=== PATIENT | female | born 1985 | race Caucasian/White ===

== ENCOUNTER 2018-06-22 23:34 | Emergency (ER) | payer MEDICAID, SELFPAY ==
[2018-06-22 23:35] VITALS: BP 117/80; PULSE 57; RESP 14; TEMP 36.6; O2SAT 99; BMI 31.4
--- NOTE | 2018-06-23 00:51 | CT_ITS ---
STUDY: CT ABDOMEN AND PELVIS WITHOUT CONTRAST REASON FOR EXAM: Female, 32 years old. Left flank pain. RADIATION DOSAGE (If Supplied By Facility): CTDIvol = ( 9.90 ) mGy, DLP = ( 524.41 ) mGycm TECHNIQUE: Transaxial images were obtained from the dome of the diaphragm to the symphysis pubis without oral contrast, and without intravenous contrast. Sagittal and coronal images were reconstructed. Individualized dose optimization techniques were used for this CT. COMPARISON: February 09, 2015. FINDINGS: The visualized lung bases are unremarkable. The visualized portions of the heart are within normal limits. Normal liver. Normal gallbladder and extrahepatic biliary system. Normal spleen. Normal pancreas. Normal bilateral adrenal glands. Normal right kidney. Normal left kidney. Normal visualized stomach. Normal small intestine. Normal colon. The appendix is well visualized and appears normal. Normal abdominal aorta. Normal inferior vena cava. Normal retroperitoneum. No intra-abdominal free air Normal urinary bladder. Uterus is retroverted. An IUD is located within the fundal portion of the endometrium. No adnexal masses seen. Normal abdominal wall. Normal osseous structures. CT/Abdomen/Pelvis without Cont IMPRESSION: No acute findings in the abdomen or pelvis. No hydronephrosis or urinary tract stones. No evidence of bowel obstruction. Normal appendix. Electronically Signed: iKrk Estevez MD at 2:18 EDT , Service support ,
[2018-06-23 00:59] LABS: Bacteria 0 SEEN /hpf (None Seen); Mucous, Urine 0 SEEN /hpf (<or=2+); Red Blood Cells-Urine 0 SEEN /hpf (0-5)
[2018-06-23] MEDS: Ondansetron 4 MG/2 ML Vial IV (01:02)
[2018-06-23] MEDS: Ketorolac 30 MG/ML Syringe IV (01:02)
[2018-06-23] MEDS: 0.9% Normal Saline 1,000 ML 250 ML IV (01:02)
[2018-06-23 01:03] LABS: Color, Urine Yellow (Yellow); Glucose, Dipstick Normal (Normal); Ketone-Dipstick Negative (Negative); Leukocyte Esterase-Dipstick Negative /ul (Negative); Nitrite-Dipstick Negative (Negative); Occult Blood-Urine 250 /ul (Negative); Protein-Dipstick 30 mg/dl (Negative); Specific Gravity, Urine 1.005 (1.002-1.030); Urine Bilirubin Dipstick Negative (Negative); Urine Clarity Sl. Cloudy (Clear); Urine Urobilinogen Normal (Normal)
[2018-06-23] MEDS: Morphine 4 MG/ML Syringe IV (01:03)
[2018-06-23 01:09] VITALS: RESP 18; O2SAT 99
[2018-06-23 01:11] LABS: Squamous Epithelial Cells - UA 0-5 SEEN /hpf (5-10); White Blood Cells 0-5 SEEN /hpf (0-5)
[2018-06-23 01:16] LABS: Absolute Lymphocyte Count 2.28 X10^3/ul (0.83-4.51); Absolute Neutrophil Count 5.8 X10^3/uL (2.0-7.7); Basophil# 0.02 X10^3/uL; Basophil% 0.2 % (0-1); Eosinophil# 0.15 X10^3/uL; Eosinophils% 1.7 % (0-5); Hematocrit 42.7 % (37-47); Hemoglobin 14.4 g/dl (12.0-15.0); Lymphocyte # 2.28 X10^3/ul (4.0); Lymphocyte % 25.2 % (19-41); Mean Corp Hgb Conc 33.7 g/gl (32-36); Mean Corpuscular Hgb 30.1 pg (27.0-32.0); Mean Corpuscular Volume 89.1 fL (81-99); Monocyte# 0.75 X10^3/uL; Monocyte% 8.3 % (0-10); Neutrophil # 5.81 X10^3/uL (2.7-7.7); Neutrophil % 64.4 % (47-70); Platelet Count 192 K/mm3 (150-450); RBC Distribution Width CV 12.4 % (11.6-14.6); RBC Distribution Width SD 39.3 fl (35.1-43.9); Red Blood Count 4.79 M/mm3 (4.2-5.4)
[2018-06-23 01:18] LABS: POSITIVE COUNT NO; POSITIVE DIFFERENTIAL NO; POSITIVE MORPHOLOGY NO
[2018-06-23 01:29] LABS: Anion Gap 7 (5-15); BUN 17 mg/dL (7-18); BUN/Creat Ratio 17.8 RATIO (10-20); Calcium,Total 9.1 mg/dL (8.5-10.1); Chloride 108 mmol/L (98-107); Creatinine, Serum 0.96 mg/dL (0.55-1.02); EST Glomerular Filtration Rate 72 mL/min (>60); Est Glom Filt Rate - Afr Amer 88 mL/min (>60); Estimated Creatinine Clearance 77.11 ml/min; Glucose 84 mg/dL (74-106); Potassium 3.3 mmol/L (3.5-5.1); Sodium Level 140 mmol/L (136-145)
[2018-06-23 01:41] LABS: Pregnancy, Serum, hCG Quali. NEGATIVE Negative (0-9 Nonpreg)
--- NOTE | 2018-06-23 02:33 | ED.VISSUMM ---
- ER Visit Summary Date of Service: 06/23/18 Chief Complaint: [] Left back and flank pain History of Present Illness: The patient is a 32 F with left back and flank pain for last 3 hours. It waxes and wanes. She had one episode of emesis. No history of kidney stones. Denies . No urinary symptoms. Has had 5 alcohol beverages tonight. Physical Examination: Vital signs reviewed General: Well-nourished well-developed Head: Normocephalic atraumatic Eyes: Pupils equal round and reactive to light extraocular movements intact ENT: TMs clear no hemotympanum no trauma Neck: Nontender full range of motion Cardiovascular: Regular rate rhythm no murmurs normal S1-S2 Respiratory: No distress clear to auscultation bilaterally chest nontender Abdomen: Soft nontender nondistended normal bowel sounds no masses Back: Tender left CVA and left flank. Extremities: Nontender active range of motion ?4 extremities no trauma Skin: Normal color no trauma Neuro alert oriented cranial nerves II through XII intact normal strength sensation reflexes Test Results: [] Emergency Department Course and Treatment: [] Lab work is unremarkable except for potassium 3.3. No cells or bacteria in her urine. negative. CT flank showed nothing acute. Patient resting comfortably after IV fluids, Toradol, morphine, Zofran. At this time this is likely musculoskeletal. She will use anti-inflammatories and follow-up as an outpatient. Treatment Plan: [] Disposition: [] Impression: [] Left-sided back and flank pain This note was generated with [employer] dictation software. It may contain incorrect words, spelling, and punctuation that were not noted in review of the chart prior to signing ED Disposition - Plan for ED Patient: Chief Complaint: Complaint Referrals: Brielle Ball MD [Primary Care Provider] -
--- NOTE | 2018-06-23 02:34 | ED.DEP ---
ED Disposition - Plan for ED Patient: Disposition: Home or Assisted Living Chief Complaint: Complaint Instructions: ED Flank Pain Uncertain Cause Referrals: Brielle Ball MD [Primary Care Provider] -
[2018-06-23 02:53] VITALS: BP 112/71; PULSE 59; RESP 17; O2SAT 99
== END 2018-06-23 02:55 | disposition home or self-care (01) ==
PROVIDERS: Emergency Provider Emergency Medicine; Family Provider Internal Medicine; PCP Internal Medicine
DX: M54.9 Dorsalgia, unspecified (principal); R10.9 Unspecified abdominal pain; R11.10 Vomiting, unspecified; F32.9 Major depressive disorder, single episode, unspecified; Z72.0 Tobacco use; Z79.899 Other long term (current) drug therapy
CPT/HCPCS: 74176; 80048; 81001; 84703; 85025; 96361; 96374; 96375; 99283; J7030; A4216; J2405

== ENCOUNTER 2024-01-26 13:07 | Emergency (ER) | payer SELFPAY ==
[2024-01-26 13:07] VITALS: BP 124/81; PULSE 96; RESP 18; TEMP 36.1; O2SAT 99; BMI 33.1
--- NOTE | 2024-01-26 13:26 | EDS_ITS ---
HPI History of Present Illness Chief Complaint: Back Informant: patient Onset/Context/Timing Onset: Weeks (1) Context: Gradual Onset Timing: Continuous Quality: Sharp, Dull, Aching, Burning and Throbbing Location: Lumbar Worsened by: improves with Nothing Relieved by: Nothing Associated Symptoms Associated Symptoms: Abdominal Pain; Negative for Numbness, Tingling, Radiation to Right Leg, Radiation to Left Leg, Fever, Dysuria, Unable to Ambulate, Unable to Transfer, Urinary Retention, Urinary Incontinence, Constipation or Fecal Incontinence Narrative Narrative: Patient presents with back pain that has been getting worse over the past week. Patient states it came on gradually. Patient states the pain has been constant. Patient states the pain is mainly over the left lower lumbar area. Patient states it radiates around into her suprapubic area. Patient states nothing makes it better nothing makes it worse. Patient denies any dysuria or hematuria. Patient admits to some irregular vaginal bleeding but denies any heavy vaginal bleeding. Patient denies any fevers or chills. Patient denies any bowel or bladder changes. Patient denies any saddle anesthesia. Patient denies any trauma or injury. PFSH PFSH Medical History no medical history no medical history Home Medications Paroxetine 20 mg PO DAILY 12/17/17 [History Last Taken Unknown] Allergy/AdvReac Type Severity Reaction Status Date / Time No Known Allergies Allergy Verified 01/26/24 13:09 Surgical History no surgical history no surgical history Social History Smoking Status: Current some day smoker tobacco type: cigarettes ROS ROS ED Constitutional Constitutional ED: Denies chills or fever(s) Eyes Eyes: Denies blurry vision or change in vision ENT ENT ED: Denies rhinorrhea or sore throat Cardiovascular Cardiovascular: Denies chest pain or palpitations Respiratory/Chest Respiratory/Chest: Denies cough or dyspnea Gastrointestinal Gastrointestinal: Denies nausea or vomiting Genitourinary Genitourinary ED: Denies dysuria or hematuria Musculoskeletal Musculoskeletal: Reports back pain; Denies neck pain Integumentary Denies abscess or rash Neurologic Neurologic: Denies headache(s) or weakness Allergic/Immunologic Allergic/Immunologic ED: Denies mouth swelling or urticaria EXAM Physical Exam Const Vital Signs: 01/26/24 13:07 Temperature 96.9 F L Temperature Source Temporal Pulse Rate 96 Respiratory Rate 18 Blood Pressure 124/81 H Blood Pressure Mean 95 Pulse Ox 99 Oxygen Delivery Method Room Air Positive well nourished and well developed General Appearance ED: well developed and NAD HEENT Reports moist mucous membranes Neck supple and no JVD Resp normal respiratory effort and clear to auscultation bilaterally Cardio regular rate and regular rhythm GI soft to palpation and non-distended Palpation: tender suprapubic (Mild); Negative for guarding or rebound tenderness present Back/Spine Back/Spine Narrative: There is tenderness and mild spasm of the left lumbar paraspinal muscles. There is mild left CVA tenderness. There is decreased range of motion of the lumbar spine secondary to pain. Strength is 5/5 bilaterally in the lower extremities. There are no sensory deficits noted. Lumbar Spine / Lower Back: ROM limited Neuro oriented x3 and no sensory deficits noted Sensorium / Orientation: alert Motor Exam: strength 5/5 throughout Psych mental status grossly normal Skin no rashes or lesions noted MDM MDM MDM Narrative Medical decision making narrative: Differential diagnosis includes lumbosacral strain, ureteral calculus, urinary tract infection, pyelonephritis, and diverticulitis. CBC will be obtained to assess for leukocytosis and anemia. Basic metabolic profile will be obtained to assess for electrolyte abnormality and renal function. Serum hCG will be obtained to assess for . Urinalysis will be obtained to assess for urinary tract infection and hematuria. CT scan of the abdomen and pelvis will be obtained to assess for ureteral calculus and diverticulitis. Lab Data Attestation: I reviewed the patient's lab results. Lab results narrative: CBC was reviewed and was within normal limits. Basic metabolic profile was reviewed and was within normal limits. Serum hCG was reviewed and was negative. Urinalysis was reviewed. There is no evidence of urinary tract infection or hematuria. Labs: Laboratory Results - last 24 hr 01/26/24 01/26/24 14:11 14:20 WBC 6.2 RBC 4.90 Hgb 14.7 Hct 43.9 MCV 89.6 MCH 30.0 MCHC 33.5 RDW Std Deviation 38.3 RDW Coeff of [place] 11.7 Plt Count 248 MPV 10.3 Immature Gran % (Auto) 0.300 Neut % (Auto) 57.8 Lymph % (Auto) 33.0 [place] % (Auto) 6.7 Eos % (Auto) 1.6 Baso % (Auto) 0.6 Absolute Neuts (auto) 3.6 Absolute Lymphs (auto) 2.03 Nucleated RBC % 0 Sodium 140 Potassium 3.9 Chloride 110 H Carbon Dioxide 26.0 Anion Gap 4 L BUN 20 H Creatinine 0.98 Estim Creat Clear Calc 88.13 Est GFR (MDRD) Af Amer 83 Est GFR (MDRD) Non-Af 69 BUN/Creatinine Ratio 20.5 H Glucose 102 Calcium 9.6 Serum , Qual NEGATIVE Urine Color Yellow Urine Clarity Sl. Cloudy Urine pH 6.0 Ur Specific [place] 1.020 Urine Protein 15 H Urine Glucose (UA) Normal Urine Ketones Negative Urine Occult Blood 50 H Urine Nitrite Negative Urine Bilirubin Negative Urine Urobilinogen Normal Ur Leukocyte Esterase 25 H Urine RBC 0-5 SEEN Urine WBC 0-5 SEEN Ur Squamous Epith Cells 0-5 SEEN Urine Bacteria 1+ Urine Mucus 0 SEEN Radiography Diagnostic Testing: Clinical Impression(s) from Imaging Studies Abdomen/Pelvis CT 01/26/24 14:52 IMPRESSION: 1. Small fat-containing umbilical hernia. 2. No radiopaque stones or hydronephrosis or cysts or masses are present. No free air or free fluid or bowel dilatation is seen. No colonic diverticula. Electronically Signed: Bud Reyes MD at 15:28 EST Reading Location ID and State: [facility] / [place] , Service support , CT scan of the abdomen and pelvis was obtained. There is a small fat-containing umbilical hernia. There is no hydronephrosis or radiopaque stones. There is no free air or free fluid. There is no evidence of bowel obstruction or perforation. IUD is present in the uterus. This was interpreted by the radiologist was also independently reviewed by myself. Treatment and Re-Evaluation Narrative: Patient was given IV fluids and Toradol. Patient was feeling better on ree valuation. Patient was advised of her findings. Patient was advised that this is most likely musculoskeletal. Patient was instructed use ice to the area. Patient was instructed to follow-up with her primary care physician in 5 to 7 days. Patient understood and was agreeable with the plan. All questions were answered. Discharge Plan Triage Chief Complaint: Back Other Complaint: Lower Extremity Injury ED Provider: Kamlesh Horner Dx/Rx/DC Orders Clinical Impression: Acute lumbosacral myofascial strain, Left flank pain Instructions: ED Back Sprain/Strain Prescriptions: No Action Paroxetine 20 mg PO DAILY Primary Care Provider: Vinita Ortiz NP Referrals: Brielle Ball MD [Med Staff - Web Press Operator] - 5-7 Days Disposition Disposition: Home, Self Care
[2024-01-26] MEDS: 0.9% Normal Saline (1000mL) 1,000 ML 1000 ML IV (14:12)
[2024-01-26] MEDS: Ketorolac 30 MG/ML Syringe IV (14:12)
[2024-01-26 14:28] LABS: Mucous, Urine 0 SEEN /hpf (<or=2+)
[2024-01-26 14:31] LABS: Color, Urine Yellow (Yellow); Glucose, Dipstick Normal (Normal); Ketone-Dipstick Negative (Negative); Leukocyte Esterase-Dipstick 25 /ul (Negative); Nitrite-Dipstick Negative (Negative); Occult Blood-Urine 50 /ul (Negative); Protein-Dipstick 15 mg/dl (Negative); Urine Bilirubin Dipstick Negative (Negative); Urine Clarity Sl. Cloudy (Clear); Urine Urobilinogen Normal (Normal)
[2024-01-26 14:33] LABS: Absolute Lymphocyte Count 2.03 X10^3/uL (0.83-4.51); Absolute Neutrophil Count 3.6 X10^3/uL (2.0-7.7); Basophil# 0.04 X10^3/uL; Basophil% 0.6 % (0-1); Eosinophils% 1.6 % (0-5); Hematocrit 43.9 % (37-47); Hemoglobin 14.7 g/dL (12.0-15.0); Lymphocyte # 2.03 X10^3/ul (0.83-4.51); Mean Corp Hgb Conc 33.5 g/dL (32-36); Mean Corpuscular Volume 89.6 fL (81-99); Mean Platelet Vol. 10.3 fl (6.2-12.0); Monocyte# 0.41 X10^3/uL; Monocyte% 6.7 % (0-10); NRBC Flagged by Analyzer 0 % (0-5); Neutrophil # 3.56 X10^3/uL (2.7-7.7); Neutrophil % 57.8 % (47-70); Platelet Count 248 K/mm3 (150-450); RBC Distribution Width CV 11.7 % (11.6-14.6); RBC Distribution Width SD 38.3 fl (35.1-43.9); White Blood Count 6.2 K/mm3 (4.4-11.0)
[2024-01-26 14:44] LABS: Bacteria 1+ /hpf (None Seen); Red Blood Cells-Urine 0-5 SEEN /hpf (0-5); Squamous Epithelial Cells - UA 0-5 SEEN /hpf (5-10); White Blood Cells 0-5 SEEN /hpf (0-5)
[2024-01-26 14:46] LABS: Internal QC Validated? YES +Cl - CLEAR BKGD; Pregnancy, Serum, hCG Quali. NEGATIVE Negative; Record Kit Lot#, Serum Preg. HCG0000718086
[2024-01-26 14:50] LABS: Anion Gap 4 (5-15); BUN 20 mg/dL (7-18); BUN/Creat Ratio 20.5 RATIO (10-20); Calcium,Total 9.6 mg/dL (8.5-10.1); Chloride 110 mmol/L (98-107); Creatinine, Serum 0.98 mg/dL (0.55-1.02); EST Glomerular Filtration Rate 69 mL/min (>60); Est Glom Filt Rate - Afr Amer 83 mL/min (>60); Estimated Creatinine Clearance 88.13 ml/min; Glucose 102 mg/dL (74-106); Potassium 3.9 mmol/L (3.5-5.1); Sodium Level 140 mmol/L (136-145)
--- NOTE | 2024-01-26 14:52 | CT_ITS ---
STUDY: CT ABDOMEN AND PELVIS WITHOUT CONTRAST REASON FOR EXAM: Female, 38 years old. Left flank pain RADIATION DOSAGE (If Supplied By Facility): CTDIvol = ( 13.37 ) mGy, DLP = ( 748.06 ) mGycm TECHNIQUE: Transaxial images were obtained from the dome of the diaphragm to the symphysis pubis without oral contrast, and without intravenous contrast. Sagittal and coronal images were reconstructed. Individualized dose optimization techniques were used for this CT. COMPARISON: CT of abdomen and pelvis dated June 23, 2018 FINDINGS: The visualized lung bases are unremarkable. The visualized portions of the heart are within normal limits. Normal liver. Normal gallbladder and extrahepatic biliary system. Normal spleen. Normal pancreas. Normal bilateral adrenal glands. Normal right kidney. Normal left kidney. No radiopaque stones or hydronephrosis or cysts or masses are present. No free air or free fluid or bowel dilatation is seen. No colonic diverticula. Normal visualized stomach. Normal small intestine. Normal colon. The appendix is visualized and appears normal. Normal abdominal aorta. Normal inferior vena cava. Normal retroperitoneum. Normal urinary bladder. Normal visualized uterus. An IUD is present. Normal ovaries. There is a small umbilical hernia containing fat. Normal osseous structures. CT/Abdomen/Pelvis without Cont IMPRESSION: 1. Small fat-containing umbilical hernia. 2. No radiopaque stones or hydronephrosis or cysts or masses are present. No free air or free fluid or bowel dilatation is seen. No colonic diverticula. Electronically Signed: Bud Reyes MD at 15:28 EST ,
[2024-01-26 15:07] VITALS: RESP 16
[2024-01-26 15:40] VITALS: BP 121/98; PULSE 76; RESP 16; TEMP 36.8; O2SAT 98
--- OUTSIDE RECORDS SUMMARY | 2024-01-26 22:20 | XMS RPT_ITS | CCD ---
Author Name Unknown Address [address] [place] [address] Organization [facility] Care Team Providers Care Records Associate Name Role Phone YARIEL RAMOS Attending Unavailable PHYSICIAN, NONE Primary Care Unavailable Angel CHECK WEIGHER.Vinita PUENTE Primary Care Provider VINITA ORTIZ Primary Care Unavailable VINITA ORTIZ Attending Unavailable VINITA ORTIZ Referring Unavailable VINITA ORTIZ Primary Care Unavailable Medications Completed/Discontinued Medications Medication Drug Class(es) Dates Sig (Normalized) Sig (Original) amitriptyline hydrochloride 10 mg oral tablet (5 sources) Tricyclic Antidepressant Start: 02-20-2022 End: 09-15-2023 take 1 tablet by mouth once daily at bedtime amitriptyline (ELAVIL) 10 mg tablet Indications: Anxiety , Irritable bowel syndrome with diarrhea Take 1 tablet by mouth daily at bedtime. 90 tablet 3 09/15/2023 Active Problems Active Problems Problem Classification Problem Date Documented Da te Episodic/Chronic Adjustment disorders (4 sources) Adjustment disorder with depressed mood; Translations: [Adjustment disorder with depressed mood] Onset: 5 11-28-2005 Chronic Anxiety disorders (9 sources) Anxiety; Translations: [Anxiety disorder, unspecified] Onset: 5 Chronic Disorders usually diagnosed in infancy, childhood, or adolescence (4 sources) Attention deficit hyperactivity disorder, predominantly inattentive type; Translations: [Other specified behavioral and emotional disorders with onset usually occurring in childhood and adolescence] Onset: 5 08-11-2020 Chronic Esophageal disorders (6 sources) Gastroesophageal reflux disease without esophagitis; Translations: [Gastro-esophageal reflux disease without esophagitis] Onset: 0 08-11-2020 Chronic Miscellaneous mental health disorders (4 sources) Primary insomnia; Translations: [Primary insomnia] Onset: 0 08-11-2020 Chronic Other gastrointestinal disorders (1 source) Irritable bowel syndrome with diarrhea; Translations: [Irritable bowel syndrome with diarrhea] 09-15-2023 Chronic Other gastrointestinal disorders (1 source) Irritable bowel syndrome with diarrhea; Translations: [Irritable bowel syndrome with diarrhea] Onset: 3 Chronic Past or Other Problems Problem Classification Problem Date Documented Da te Episodic/Chronic Screening and history of mental health and substance abuse codes (4 sources) H/O: anxiety state; Translations: [Personal history of other mental and behavioral disorders] Onset: 07-03-2015 07-03-2015 Episodic Results Test Name Value Interpretation Reference Range Facil ity Vital Signs Date Time Vital Sign Value Performing Clinician Jay aguilar 09-15-2023 08:49-0400 Body weight 94.35 kg Vinita Ortiz APRN.CINDI Work Phone: [facility] 09-15-2023 08:49-0400 Diastolic blood pressure 76 mm[Hg] Vinita Ortiz CHECK WEIGHER.SOFT CRAB SHEDDER Work Phone: [facility] 09-15-2023 08:49-0400 Heart rate 76 /min Vinita Ortiz CHECK WEIGHER.SOFT CRAB SHEDDER Work Phone: [facility] 09-15-2023 08:49-0400 Respiratory rate 16 /min Vinita Ortiz CHECK WEIGHER.SOFT CRAB SHEDDER Work Phone: [facility] 09-15-2023 08:49-0400 Systolic blood pressure 110 mm[Hg] Vinita Ortiz CHECK WEIGHER.SOFT CRAB SHEDDER Work Phone: [facility] Encounters Encounter Date Encounter Type Care Provider Facility Start: 09-15-2023 End: 09-16-2023 ambulatory VINITA ORTIZ Facility:[facility] Start: 09-15-2023 End: 09-15-2023 Office outpatient visit 25 minutes Vinita Ortiz APRN.SOFT CRAB SHEDDER Work Phone: [facility] [place] Plan of Treatment Date Care Activity Detail Author Start: 11-09-2024 Urine microalbumin profile [facility] Start: 09-15-2024 Covid-19 Vaccine (#1) Covid-19 Vacci ne (#1) [facility] Immunizations Immunization Date Immunization Notes Care Provider [facility] 11-09-2014 tetanus toxoid, redu justin diphtheria toxoid, and acellular pertussis vaccine, adsorbed Vinita Haagen CHECK WEIGHER.[facility] Work Phone: [facility] 10-10-2009 novel [id number], all formulations Vinita Haagen CHECK WEIGHER.[facility] Work Phone: [facility] Work Phone: 07-21-2000 measles, mumps and rubella virus vaccine Vinita Haagen CHECK WEIGHER.[facility] Work Phone: [facility] Work Phone: 05-12-1993 diphtheria, tetanus toxoids and pertussis vaccine Vinita Haagen CHECK WEIGHER.[facility] Work Phone: [facility] Work Phone: 05-12-1993 trivalent poliovirus vaccine, live, oral Vinita Haagen CHECK WEIGHER.[facility] Work Phone: [facility] Work Phone: 01-01-1990 diphtheria, tetanus toxoids and pertussis vaccine Vinita Haagen CHECK WEIGHER.[facility] Work Phone: [facility] Work Phone: 01-01-1990 trivalent poliovirus vaccine, live, oral Vinita Haagen CHECK WEIGHER.[facility] Work Phone: [facility] Work Phone: 12-19-1988 measles, mumps and rubella virus vaccine Vinita Haagen CHECK WEIGHER.SOFT [employer] SHEDDER Work Phone: [facility] Work Phone: 03-28-1988 diphtheria, tetanus toxoids and pertussis vaccine Vinita Haagen CHECK WEIGHER.[facility] Work Phone: [facility] Work Phone: 02-15-1988 diphtheria, tetanus toxoids and pertussis vaccine Vinita Haagen CHECK WEIGHER.[facility] Work Phone: [facility] Work Phone: 02-15-1988 trivalent poliovirus vaccine, live, oral Vinita Ortiz CHECK WEIGHER.SOFT CRAB SHEDDER Work Phone: [facility] Work Phone: 1987 diphtheria, tetanus toxoids and pertussis vaccine Vinita Ortiz CHECK WEIGHER.SOFT CR[employer] SHEDDER Work Phone: [facility] Work Phone: Payers Date Payer Category Payer Self-pay 1985 Unknown [id number] Social History Date Type Detail Facility Start: 12-29-2008 End: 09-15-2023 Tobacco smoking status NHIS Ex-smoker [facility] Work Phone: End: 08-01-2008 History of tobacco use Current smoker [facility] Work Phone: End: 08-01-2008 History of tobacco use Cigarette Smoker [facility] Work Phone: Start: 12-29-2008 End: 09-15-2023 Tobacco use and exposure Smokeless tobacco non-user [facility] Work Phone: Start: 02-20-2022 End: 09-15-2023 Alcohol intake Current drinker of alcohol (finding) [facility] Start: 12-29-2008 Tobacco Comment SOCIALLY ONLY [facility] Start: 05-13-2019 Alcohol Comment couple of beer s on the weekend [facility] Start: 1985 Sex Assigned At Not on file [facility] Start: 02-20-2022 End: 07-11-2023 History of Social function [facility] Start: 02-20-2022 End: 07-11-2023 Tobacco use panel [facility] National Score (1-100), lower number is lower risk Not on file [facility] Clinical Notes 06-26-2009 to 09-15-2023 Patient InstructionsVinita Ortiz APRN.CINDI - 09/15/2023 9:05 AM EDTTelephone Encounter - Lazara Rowley Ma - 08/11/2023 2:26 PM EDTTelephone Encounter - Joanna Betancourt - 08/11/2023 9:57 AM EDT Note Date & Type Note Facility 09-15-2023 Note HNO ID: [id number] Author: Vinita Ortiz APRN.SOFT CRAB SHEDDER Service: ? Author Type: Nurse Practitioner Type: Progress Notes Filed: 09/15/2023 1:07 PM Note Text: This is a 37 year old female who presents today with: Patient presents with: Recheck: Medication follow up/refills HISTORY OF PRESENT ILLNESS: Tracie Pineda is a 37 year old female. Patient presents with: Recheck: Medication follow up/refills Pt presents today for medication refills. Denies problems/concerns. Anxiety: Mood has been good. Paxil is doing its job. Wouldn't change anything with it. Denies side effects. Insomnia: I've been sleeping a lot better . Denies side effects. REVIEW OF SYSTEMS GENERAL: No weight loss, malaise or fevers/chills HEENT: Negative for frequent or significant headaches, No changes in hearing or vision. NECK: Negative for lumps, goiter, pain and significant neck swelling RESPIRATORY: Negative for cough, hemoptysis, wheezing, dyspnea or shortness of breath CARDIOVASCULAR: Negative for chest pain, leg swelling, orthopnea, or palpitations GI: No nausea, vomiting, or diarrhea/constipation. No hematochezia/melena. No heartburn or reflux symptoms. : No history of dysuria, frequency or incontinence MUSCULOSKELETAL: Negative for joint pain or swelling. SKIN: Negative for lesions, rash, and itching ENDOCRINE: Negative for cold or heat intolerance, polyuria, polydipsia and goiter NEURO: No history of headaches, syncope, paralysis, seizures or tremors PAST MEDICAL HISTORY: PAST MEDICAL HISTORY Diagnosis Date Anxiety 07/03/2015 Attention deficit disorder without mention of hyperactivity Encounter for insertion or removal of intrauterine contraceptive device 03/06/2011 mirena GERD without esophagitis 08/11/2020 History of panic attacks 07/03/2015 Primary insomnia 08/11/2020 PAST SURGICAL HISTORY Procedure Laterality Date DELIVERY ONLY 2008 , low transverse DILATION AND CURETTAGE DXAND/THER NONOBSTETRIC 01/30/2011 Dilation AND curettage INSERTION OF IUD 03/06/2011 Mirena ALLERGIES Patient has no known allergies. MEDICATIONS Current Outpatient Medications Medication Sig amitriptyline (ELAVIL) 10 mg tablet Take 1 tablet by mouth daily at bedtime. PARoxetine (PAXIL) 30 mg tablet Take 1 tablet by mouth once daily. No current facility-administered medications for this visit. FAMILY HISTORY Problem Relation Age of Onset No Known Problems Mother Cancer Father RENAL CELL CARCINOMA Heart Maternal Grandmother HEART MURMUR Diabetes Maternal Grandfather Heart Paternal Grandmother Asthma Son Social History Tobacco Use Smoking status: Former Years: 1 Types: Cigarettes Quit date: 08/01/2008 Years since quittin.1 Smokeless tobacco: Never Substance Use Topics Alcohol use: Yes Comment: couple of beers on the weekend Drug use: No EXAM: BP 110/76 Pulse 76 Resp 16 Wt 94.3 kg (208 lb) LMP 01/30/2011 PHYSICAL EXAM: General Appearance: Well appearing, alert, in no acute distress, well-hydrated, well nourished.. Skin: Skin color, texture, turgor normal, no suspicious rashes or lesions. Head: Normocephalic, no masses, lesions, tenderness or abnormalities. Eyes: Anicteric sclera. Pupils are equally round and reactive to light. Extraocular movements are intact. Ears: External ears normal, canals clear. Normal TMs bilaterally. Oropharynx: Lips, mucosa, and tongue normal, teeth and gums normal, oropharynx normal. Neck: Supple, no adenopathy; thyroid symmetric, normal size, no bruits. Lungs: Lungs clear to auscultation. No wheezing, rhonchi, rales.. Heart: RRR without murmur, gallop, or rubs. No ectopy. Abdomen: Abdomen soft, non-tender. Bowel sounds normal. No masses, organomegaly. Extremities: No deformities, edema, skin discoloration, clubbing or cyanosis. Good capillary refill. Neurologic: Gait normal. ASSESSMENT/PLAN: 1. Anxiety - ICD9: 300.00, ICD10: F41.9 (primary diagnosis) Doing well with current medications. Wouldn't change anything. - AMITRIPTYLINE 10 MG TABLET - PAROXETINE 30 MG TABLET 2. Irritable bowel syndrome with diarrhea - ICD9: 564.1, ICD10: K58.0 Stable. - AMITRIPTYLINE 10 MG TABLET 3. GERD without esophagitis - ICD9: 530.81, ICD10: K21.9 Stable. Discussed treatment plan and patient voices understanding. Patient's questions answered appropriately. Medications and potential side effects were discussed and patient voices understanding. She is due for pap. She will return for pap or schedule w/ BUILDING CLEANING SUPERVISOR. Return to the office as scheduled or as needed for worsening/no improvement. Vinita Ortiz APRN.CNP [facility] 09-15-2023 Instructions Vinita Ortiz APRN.CNP - 09/15/2023 9:12 AM EDT Schedule back for pap (or with BUILDING CLEANING SUPERVISOR). 2. Same medications. Health Promotion: - Eat healthy -- go to [employer] to get started - Have a yearly physical - Mammogram yearly after age 40 - Get at least 30 minutes of physical activity daily - Get at least 7 to 8 hours of sleep each night - Reach and maintain a healthy weight - Get help to quit or don't start smoking - Limit alcohol use to one drink or less - Do not use illegal drugs or misuse prescription drugs - Wear a helmet when riding a bike and wear protective gear for sports - Wear a seatbelt in cars and not text and drive - Wear sunscreen documented in this encounter [facility] 09-15-2023 History of Presen t illness Narrative This is a 37 year old female who presents today with: Patient presents with: Recheck: Medication follow up/refills HISTORY OF PRESENT ILLNESS: Tracie Pineda is a 37 year old female. Patient presents with: Recheck: Medication follow up/refills Pt presents today for medication refills. Denies problems/concerns. Anxiety: Mood has been good. Paxil is doing its job. Wouldn't change anything with it. Denies side effects. Insomnia: I've been sleeping a lot better . Denies side effects. REVIEW OF SYSTEMS GENERAL: No weight loss, malaise or fevers/chills HEENT: Negative for frequent or significant headaches, No changes in hearing or vision. NECK: Negative for lumps, goiter, pain and significant neck swelling RESPIRATORY: Negative for cough, hemoptysis, wheezing, dyspnea or shortness of breath CARDIOVASCULAR: Negative for chest pain, leg swelling, orthopnea, or palpitations GI: No nausea, vomiting, or diarrhea/constipation. No hematochezia/melena. No heartburn or reflux symptoms. : No history of dysuria, frequency or incontinence MUSCULOSKELETAL: Negative for joint pain or swelling. SKIN: Negative for lesions, rash, and itching ENDOCRINE: Negative for cold or heat intolerance, polyuria, polydipsia and goiter NEURO: No history of headaches, syncope, paralysis, seizures or tremors PAST MEDICAL HISTORY: PAST MEDICAL HISTORY Diagnosis Date Anxiety 07/03/2015 Attention deficit disorder without mention of hyperactivity Encounter for insertion or removal of intrauterine contraceptive device 03/06/2011 mirena GERD without esophagitis 08/11/2020 History of panic attacks 07/03/2015 Primary insomnia 08/11/2020 PAST SURGICAL HISTORY Procedure Laterality Date DELIVERY ONLY 2008 , low transverse DILATION & CURETTAGE DX&/THER NONOBSTETRIC 01/30/2011 Dilation & curettage INSERTION OF IUD 03/06/2011 Mirena ALLERGIES Patient has no known allergies. MEDICATIONS Current Outpatient Medications Medication Sig amitriptyline (ELAVIL) 10 mg tablet Take 1 tablet by mouth daily at bedtime. PARoxetine (PAXIL) 30 mg tablet Take 1 tablet by mouth once daily. No current facility-administered medications for this visit. FAMILY HISTORY Problem Relation Age of Onset No Known Problems Mother Cancer Father RENAL CELL CARCINOMA Heart Maternal Grandmother HEART MURMUR Diabetes Maternal Grandfather Heart Paternal Grandmother Asthma Son Social History Tobacco Use Smoking status: Former Years: 1 Types: Cigarettes Quit date: 08/01/2008 Years since quittin.1 Smokeless tobacco: Never Substance Use Topics Alcohol use: Yes Comment: couple of beers on the weekend Drug use: No EXAM: BP 110/76 Pulse 76 Resp 16 Wt 94.3 kg (208 lb) LMP 01/30/2011 PHYSICAL EXAM: General Appearance: Well appearing, alert, in no acute distress, well-hydrated, well nourished.. Skin: Skin color, texture, turgor normal, no suspicious rashes or lesions. Head: Normocephalic, no masses, lesions, tenderness or abnormalities. Eyes: Anicteric sclera. Pupils are equally round and reactive to light. Extraocular movements are intact. Ears: External ears normal, canals clear. Normal TMs bilaterally. Oropharynx: Lips, mucosa, and tongue normal, teeth and gums normal, oropharynx normal. Neck: Supple, no adenopathy; thyroid symmetric, normal size, no bruits. Lungs: Lungs clear to auscultation. No wheezing, rhonchi, rales.. Heart: RRR without murmur, gallop, or rubs. No ectopy. Abdomen: Abdomen soft, non-tender. Bowel sounds normal. No masses, organomegaly. Extremities: No deformities, edema, skin discoloration, clubbing or cyanosis. Good capillary refill. Neurologic: Gait normal. ASSESSMENT/PLAN: 1. Anxiety - ICD9: 300.00, ICD10: F41.9 (primary diagnosis) Doing well with current medications. Wouldn't change anything. - AMITRIPTYLINE 10 MG TABLET - PAROXETINE 30 MG TABLET 2. Irritable bowel syndrome with diarrhea - ICD9: 564.1, ICD10: K58.0 Stable. - AMITRIPTYLINE 10 MG TABLET 3. GERD without esophagitis - ICD9: 530.81, ICD10: K21.9 Stable. Discussed treatment plan and patient voices understanding. Patient's questions answered appropriately. Medications and potential side effects were discussed and patient voices understanding. She is due for pap. She will return for pap or schedule w/ BUILDING CLEANING SUPERVISOR. Return to the office as scheduled or as needed for worsening/no improvement. Vinita Ortiz APRN.CINDI documented in this encounter [facility] 08-11-2023 Miscellaneous Notes Formattin g of this note might be different from the original. Pt has appt 08/12/23 with Nimisha Hoang. .mje Can you please call the patient and let her know that we will refill her Paxil for 1 month supply. She will need to have a follow-up with Vinita Recinos to receive future refills. Thank you. The following approved medication requests have been transmitted electronically. Requested Prescriptions Signed Prescriptions Disp Refills PARoxetine (PAXIL) 30 mg tablet 30 tablet 0 Sig: Take 1 tablet by mouth once daily. Authorizing Provider: SIERRA MARIE APRN.SOFT CRAB SHEDDER JENS 02/20/22 *Pt no showed follow up appt on 03/27/22 NOV no upcoming appt Last rx written 07/04/23 #30 with 0 refills. Steffen Hendricks LPN Patient is trying to get financial clearance to schedule follow up appt; PFA appt today. Wants to know if refill can be called in. Please advise her at [phone]. Patient has been identified by name and date of : Yes Requested Prescriptions Pending Prescriptions Disp Refills PARoxetine (PAXIL) 30 mg tablet 30 tablet 0 Sig: Take 1 tablet by mouth once daily. RX INSTRUCTIONS: Patient requesting a call when RX is approved and sent to the pharmacy. Please call patient at: [phone] Joanna Cross documented in this encounter [facility] 07-04-2023 Miscellaneous Notes Formattin g of this note might be different from the original. Script sent. Due for an appointment. Please let patient know. Vinita Ortiz APRN.CINDI Pt calling for an update. I did tell her that it was pending and that the office has 24-48 hours to process. TC to Pt. Pt is called financial dept. and is waiting on a call back. Pt is going to make her appt. Will request a 30 supply of meds. So she can get schedule and financial help. Whitney Oglesby LPN Pt is overdue for a yearly. Pt needs to schedule before we fill medication. TC to Pt. Unable to LM due to the mailbox is full. Will try again later. Whitney Oglesby LPN Patient has been identified by name and date of : Yes Patient phones requesting refills as follows: Requested Prescriptions Pending Prescriptions Disp Refills PARoxetine (PAXIL) 30 mg tablet 30 tablet 0 Sig: Take 1 tablet by mouth once daily. Patient is aware she needs to scheduled an appointment. RX INSTRUCTIONS: Patient aware RX will be sent to pharmacy. No need to notify patient. Tram Higgins documented in this encounter [facility] 11-04-2022 Miscellaneous Notes Formattin g of this note is different from the original. Patient has been identified by name and date of : Yes Requested Prescriptions Pending Prescriptions Disp Refills PARoxetine (PAXIL) 30 mg tablet 30 tablet 5 Sig: Take 1 tablet by mouth once daily. RX INSTRUCTIONS: Patient aware RX will be sent to pharmacy. No need to notify patient. Lorrie Fraire Pss documented in this encounter [facility] documented as of this encounter (statuses as of 11/04/2022) [facility]07-27-2009 History of Past illness Narrative* Problem Noted Date Diagnosed Date Resolved Date Unspecified high-risk 06/26/2009 02/25/2011 documented as of this encounter (statuses as of 07/05/2023) [facility] History of Past illness Narrative* Problem Noted Date Diagnosed Date Resolved Date Unspecified high-risk 06/26/2009 02/25/2011 documented as of this encounter (statuses as of 08/12/2023) [facility] History of Past illness Narrative* Problem Noted Date Diagnosed Date Resolved Date Unspecified high-risk 06/26/2009 02/25/2011 documented as of this encounter (statuses as of 09/15/2023) [facility] note* Diagnosis Anxiety Anxiety state, unspecified documented in this encounter [facility] note* Diagnosis Anxiety Anxiety state, unspecified documented in this encounter [facility] note* Diagnosis Anxiety- Primary Anxiety state, unspecified Irritable bowel syndrome with diarrhea Irritable bowel syndrome GERD without esophagitis Esophageal reflux documented in this encounter [facility] Summary Purpose Family History No Family History Records FoundNo Family History Records Found Advance Directives No Advanced Directives Records FoundNo Advanced Directives Records Found Additional Source Comments INFORMATION SOURCE (unrecogn ized section and content) DATE CREATED AUTHOR AUTHOR'S ORGANIZ ATION 10/15/2023 [facility] Source Comments (unrecognize d section and content) In the event this informatio n is protected by the Federal Confidentiality of Alcohol and Drug Abuse Patient Records regulations: The Federal rules restrict any use of the information to criminally investigate or prosecute any alcohol or drug abuse patient.[facility] the event this information is protected by the Federal Confidentiality of Alcohol and Drug Abuse Patient Records regulations: The Federal rules restrict any use of the information to criminally investigate or prosecute any alcohol or drug abuse patient.[facility] the event this information is protected by the Federal Confidentiality of Alcohol and Drug Abuse Patient Records regulations: The Federal rules restrict any use of the information to criminally investigate or prosecute any alcohol or drug abuse patient.[facility] the event this information is protected by the Federal Confidentiality of Alcohol and Drug Abuse Patient Records regulations: The Federal rules restrict any use of the information to criminally investigate or prosecute any alcohol or drug abuse patient.[facility] Reason for Visit (unrecogniz ed section and content) Reason Onset Date Comments Refill Request 07/03/2023 Reason Onset Date Comments Refill Request 08/11/2023 Reason Comments Recheck Medication follow up /refills Specialty Diagnoses / Procedures Referred By Enid hernandez Referred To Contact [facility]ILY [facility]INE Diagnoses consult test treat Procedures primary care office visits Vinita Ortiz APRN.SOFT CRAB SHEDDER [address] [place] [address] [facility] [address] [place] [address] Referral ID Status Reason Start Date Expiration Date Visits Requested Visits Authorized [id number] Authorized Financial Clearance Required - Self Pay Patient Cleared - Qualified HCAP/501/FA 08/11/2023 11/09/2023 99 99 Care Teams (unrecognized sec tion and content) Records Associate Relationship Specialty Start Date End Date Vinita Ortiz APRN.SOFT CRAB SHEDDER [address] [place] [address] PCP - General Family Medicine 05/13/19 Records Associate Relationship Specialty Start Date End Date Vinita Ortiz APRN.SOFT CRAB SHEDDER [address] [place] [address] PCP - General Family Medicine 05/13/19 FOR RECORDS PERTAINING TO PATIENTS WHO ARE OR HAVE BEEN ENROLLED IN A CHEMICAL DEPENDENCY/SUBSTANCEABUSE PROGRAM, SOME INFORMATION MAY BE OMITTED. This clinical summary was aggregated from multiple sources. Caution should be exercised in using it in the provision of clinical care. This summary normalizes information from multiple sources, and as a consequence, information in this document may materially change the coding, format and clinical context of patient data. In addition, data may be omitted in some cases. CLINICAL DECISIONS SHOULD BE BASED ON THE PRIMARY CLINICAL RECORDS. [employer] provides no warranty or guarantee of the accuracy or completeness of information in this document.
== END 2024-01-26 15:41 | disposition home or self-care (01) ==
PROVIDERS: Emergency Provider Emergency Medicine; PCP Registered Nurse; Visit Provider Emergency Medicine
DX: S39.012A Strain of muscle, fascia and tendon of lower back, initial encounter (principal); X58.XXXA Exposure to other specified factors, initial encounter; F17.210 Nicotine dependence, cigarettes, uncomplicated
CPT/HCPCS: 74176; 80048; 81001; 84703; 85025; 96361; 96374; 99284; J7030